=== PATIENT | male | born 1960 | race Caucasian/White ===

== ENCOUNTER 2016-09-22 02:30 | Emergency (ER) | payer SELFPAY ==
[2016-09-22 02:41] VITALS: RESP 20; O2SAT 95
[2016-09-22 03:05] LABS: % IMMATURE GRANULYOCYTES 0.4 % (0.0-1.1); ABSOLUTE IMMATURE GRANULOCYTES 0.04 10^3/uL (0.00-0.10); ADD DIFF? NO; ADD MORPH? NO; ADD SCAN? NO; ATYPICAL LYMPHOCYTE FLAG 0 (0-99); FRAGMENT RBC FLAG 0 (0-99); HEMATOCRIT 49.8 % (40.0-51.0); HEMOGLOBIN 17.1 g/dL (13.7-17.5); LEFT SHIFT FLG 0 (0-99); LIPEMIA HEMOLYSIS FLAG 90 (0-99); MEAN CELL HEMOGLOBIN 31.1 pg (27.9-34.1); MEAN CELL HEMOGLOBIN CONCENTR. 34.3 g/dL (32.4-36.7); MEAN CELL VOLUME 90.5 fL (81.5-99.8); MEAN PLATELET VOLUME 9.1 fL (8.7-11.7); PLATELET CLUMPS FLAG 20 (0-99); PLATELET COUNT 358 10^3/uL (150-400); RED CELL DISTRIBUTION WIDTH 13.2 % (11.5-15.2)
[2016-09-22 03:15] LABS: ANION GAP 12 mEq/L (8-16); CALCIUM 9.9 mg/dL (8.5-10.4); CARBON DIOXIDE 22 mEq/l (22-31); CHLORIDE 110 mEq/L (97-110); CREATININE 1.2 mg/dL (0.7-1.3); GLOMERULAR FILTRATION RATE > 60; GLUCOSE 141 mg/dL (70-100); POTASSIUM 4.5 mEq/L (3.5-5.2); SODIUM 144 mEq/L (134-144)
[2016-09-22] MEDS ORDERED: KETOROLAC 15 MG/1 ML SDV ONE (03:15)
[2016-09-22] MEDS ORDERED: KETOROLAC 15 MG/1 ML SDV IVP ONE (03:23)
[2016-09-22 03:25] LABS: ALANINE AMINOTRANSFERASE 40 IU/L (21-72); ALBUMIN 4.8 g/dL (3.5-5.0); ALKALINE PHOSPHATASE 54 IU/L (38-126); ASPARTATE AMINOTRANSFERASE 28 IU/L (17-59); BILIRUBIN,TOTAL 0.7 mg/dL (0.1-1.4); BILIRUBIN-CONJUGATED 0.5 mg/dL (0.0-0.5); BILIRUBIN-UNCONJUGATED 0.2 mg/dL (0.0-1.1)
--- NOTE | 2016-09-22 04:57 | EDPHY ---
H & P Stated Complaint: c/o R abd pain/n/v since 1999 Time Seen by Provider: 09/22/16 03:41 HPI/ROS: HPI The patient presents with right-sided upper quadrant abdominal pain which has been present since 8:00 p.m. yesterday which began while watching TV. He had had dinner at 5:00 p.m., eating biscuits and gravy. The pain is a stabbing pain which begins under his right ribcage and radiates toward his back, has been constant and was associated with nausea and vomiting tonight. He says he has had about 5 similar episodes lately, however this is the most severe. He says he has not been to the hospital in 40 years. REVIEW OF SYSTEMS Constitutional: No fever, no chills. Eyes: No discharge. ENT: No sore throat. Cardiovascular: No chest pain, no palpitations. Respiratory: No cough, no shortness of breath. Gastrointestinal: See HPI Genitourinary: No hematuria. Musculoskeletal: No back pain. Skin: No rashes. Neurological: No headache. PMHx: None Soc Hx: Heavy smoker FHx: PHYSICAL General Appearance: Alert, no distress Eyes: Pupils equal and round no pallor or injection ENT, Mouth: Mucous membranes moist Respiratory: There are no retractions, lungs are clear to auscultation Cardiovascular: Regular rate and rhythm Gastrointestinal: Abdomen is soft with mild tenderness in the right upper quadrant without any rebound or guarding Neurological: A&O, moves all extremities Skin: Warm and dry, no rashes Musculoskeletal: Neck is supple non tender Extremities: symmetrical, full range of motion Psychiatric: Patient is oriented X 3, there is no agitation Source: Patient Exam Limitations: No limitations - Medical/Surgical History Hx Asthma: No Hx Chronic Respiratory Disease: No Hx Diabetes: No Hx Cardiac Disease: No Hx Renal Disease: No Hx Cirrhosis: No Hx Alcoholism: No Hx HIV/AIDS: No Hx Splenectomy or Spleen Trauma: No Other PMH: none - Social History Smoking Status: Current every day smoker Constitutional: Initial Vital Signs Temperature (C) 36.3 C 09/22/16 02:39 Heart Rate 65 09/22/16 02:39 Respiratory Rate 20 09/22/16 02:39 Blood Pressure 147/103 H 09/22/16 02:39 O2 Sat (%) 95 09/22/16 02:39 O2 Delivery Mode Room Air Allergies/Adverse Reactions: No Known Allergies Allergy (Unverified 09/22/16 02:41) Home Medications: Medication Instructions Recorded NK [No Known Home Meds] 09/22/16 Medical Decision Making - Diagnostics Imaging: Right upper quadrant ultrasound demonstrates several gallstones, some in neck of gallbladder, no sonographic Shaw's, no signs of cholecystitis, discussed with Dr. Cai of Radiology. Differential Diagnosis: This is a 56-year-old man with no significant past medical history, though relatively few contact with the healthcare system, who presents from home with several hours of right upper quadrant abdominal pain which radiates to his back , associated with nausea and vomiting. Differential diagnosis includes biliary colic, cholecystitis, gastritis. In the emergency room, the patient was given IV fluids, Toradol, morphine with complete resolution in his symptoms. Labs were checked and were unremarkable except for a very mild leukocytosis. Liver enzymes were all normal. Right upper quadrant ultrasound was done which did show stones in his gallbladder without any signs of cholecystitis. I feel his symptoms are most probably due to biliary colic. I have discussed this with him. He does not eat very healthy diet and eats lots of fatty and greasy foods. I have advised him that he needs to change his diet to avoid these symptoms. I will give him follow up with the surgeon on-call for evaluation. Given the complete resolution of his symptoms, I do not think he needs to be admitted to the hospital. - Data Points Laboratory Results: Laboratory Results 09/22/16 03:00 09/22/16 03:00 09/22/16 09/22/16 03:00 03:00 WBC 10.59 10^3/uL H 10^3/uL (3.80-9.50) RBC 5.50 10^6/uL 10^6/uL (4.40-6.38) Hgb 17.1 g/dL g/dL (13.7-17.5) Hct 49.8 % % (40.0-51.0) MCV 90.5 fL fL (81.5-99.8) MCH 31.1 pg pg (27.9-34.1) MCHC 34.3 g/dL g/dL (32.4-36.7) RDW 13.2 % % (11.5-15.2) Plt Count 358 10^3/uL 10^3/uL (150-400) MPV 9.1 fL fL (8.7-11.7) Neut % (Auto) 73.0 % % (39.3-74.2) Lymph % (Auto) 19.9 % % (15.0-45.0) [place] % (Auto) 5.3 % % (4.5-13.0) Eos % (Auto) 0.8 % % (0.6-7.6) Baso % (Auto) 0.6 % % (0.3-1.7) Nucleat RBC Rel Count 0.0 % % (0.0-0.2) Absolute Neuts (auto) 7.74 10^3/uL H 10^3/uL (1.70-6.50) Absolute Lymphs (auto) 2.11 10^3/uL 10^3/uL (1.00-3.00) Absolute Monos (auto) 0.56 10^3/uL 10^3/uL (0.30-0.80) Absolute Eos (auto) 0.08 10^3/uL 10^3/uL (0.03-0.40) Absolute Basos (auto) 0.06 10^3/uL 10^3/uL (0.02-0.10) Absolute Nucleated RBC 0.00 10^3/uL 10^3/uL (0-0.01) Immature Gran % 0.4 % % (0.0-1.1) Immature Gran # 0.04 10^3/uL 10^3/uL (0.00-0.10) Sodium 144 mEq/L mEq/L (134-144) Potassium 4.5 mEq/L mEq/L (3.5-5.2) Chloride 110 mEq/L mEq/L (97-110) Carbon Dioxide 22 mEq/l mEq/l (22-31) Anion Gap 12 mEq/L mEq/L (8-16) BUN 17 mg/dL mg/dL (7-23) Creatinine 1.2 mg/dL mg/dL (0.7-1.3) Estimated GFR > 60 Glucose 141 mg/dL H mg/dL (70-100) Calcium 9.9 mg/dL mg/dL (8.5-10.4) Total Bilirubin 0.7 mg/dL mg/dL (0.1-1.4) Conjugated Bilirubin 0.5 mg/dL mg/dL (0.0-0.5) Unconjugated Bilirubin 0.2 mg/dL mg/dL (0.0-1.1) AST 28 IU/L IU/L (17-59) ALT 40 IU/L IU/L (21-72) Alkaline Phosphatase 54 IU/L IU/L (38-126) Total Protein 8.0 g/dL g/dL (6.3-8.2) Albumin 4.8 g/dL g/dL (3.5-5.0) Lipase 164.0 IU/L IU/L (23-300) Medications Given: Discontinued Medications Ketorolac Tromethamine (Toradol) 15 mg IVP EDNOW ONE Stop: 09/22/16 03:24 Last Admin: 09/22/16 03:23 Dose: 15 mg Morphine Sulfate (Morphine) 6 mg IVP EDNOW ONE Stop: 09/22/16 03:24 Last Admin: 09/22/16 03:23 Dose: 6 mg Departure - Departure Disposition: Home, Routine, Self-Care Clinical Impression: Biliary colic Condition: Good Instructions: Biliary Colic (ED), Gallstones (ED) Additional Instructions: Please avoid any foods that are greasy or fatty as these will trigger pain from your gallstones. Can take ibuprofen or Tylenol as needed for pain. If the pain becomes severe, you should return to the emergency room. I have given you the contact information for the surgeon, you should make an appointment. Referrals: Cathy Menchaca MD [Medical Doctor] - As per Instructions
[2016-09-22 05:17] VITALS: BP 142/95; PULSE 72; TEMP 97.7
== END 2016-09-22 05:17 | disposition home or self-care (01) ==
DX: K80.50 Calculus of bile duct without cholangitis or cholecystitis without obstruction (principal); F17.200 Nicotine dependence, unspecified, uncomplicated
CPT/HCPCS: 96374; J1885